=== PATIENT | female | born 1945 ===

== ENCOUNTER 2016-07-19 09:47 | Emergency (ER) | payer OTHER ==
[2016-07-19 09:55] VITALS: RESP 18
--- NOTE | 2016-07-19 10:47 | C.PDOC ---
History Of Present Illness 71 yr old female presents to the ER with complaints of nasal congestion, post nasal drip and dry non productive cough for the past 2 weeks. Patient states she has been taking the occasional Tylenol with no relief. Also reports of right lateral rib pain. Patient denies trauma, fall, fever, chest pain, SOB, nausea, vomiting, back pain, weakness or numbness. Time Seen by Provider: 07/19/16 10:16 Chief Complaint (Nursing): Cough, Cold, Congestion History Per: Patient History/Exam Limitations: no limitations Onset/Duration Of Symptoms: Days (2 weeks) Past Medical History Reviewed: Historical Data, Nursing Documentation, Vital Signs Vital Signs: Last Vital Signs Temp 98.2 F 07/19/16 11:03 Pulse 75 07/19/16 11:03 Resp 18 07/19/16 11:03 BP 124/75 07/19/16 11:03 Pulse Ox 99 07/19/16 11:03 - Medical History PMH: Hypercholesterolemia Family History: States: No Known Family Hx - Social History Hx Alcohol Use: No Hx Substance Use: No - Immunization History Hx Tetanus Toxoid Vaccination: No Hx Influenza Vaccination: No Hx Pneumococcal Vaccination: No Review Of Systems Except As Marked, All Systems Reviewed And Found Negative. Constitutional: Negative for: Fever ENT: Positive for: Nose Congestion, Other ((+) Post nasal drip) Cardiovascular: Negative for: Chest Pain Respiratory: Positive for: Cough (Dry). Negative for: Shortness of Breath Gastrointestinal: Negative for: Nausea, Vomiting Musculoskeletal: Positive for: Other ((+) Right lateral rib pain). Negative for : Back Pain Neurological: Negative for: Weakness, Numbness Physical Exam - Physical Exam Appears: Well, Non-toxic, No Acute Distress Skin: Warm, Dry Head: Atraumatic, Normacephalic Oral Mucosa: Moist Throat: Normal, No Erythema, No Exudate, No Drooling Neck: Normal, Normal ROM, Supple Chest: Symmetrical, No Tenderness Cardiovascular: Rhythm Regular, No Murmur Respiratory: Normal Breath Sounds, No Rales, No Rhonchi, No Stridor, No Wheezing Gastrointestinal/Abdominal: Normal Exam, Soft, No Tenderness, No Guarding, No Rebound Extremity: Normal ROM, No Swelling Neurological/Psych: Oriented x3, Normal Speech, Normal Motor ED Course And Treatment O2 Sat by Pulse Oximetry: 98 Medical Decision Making Medical Decision Making: PLAN: * Motrin PO * Pepcid PO NOTE: mild seasonal allergies, mild R lower lateral rib costochondritis NSAIDS, ice, allergy meds educated, Disposition Doctor Will See Patient In The: Office Counseled Patient/Family Regarding: Studies Performed, Diagnosis - Disposition Referrals: Clinic,Med Surg [Primary Care Provider] - Disposition: HOME/ ROUTINE Disposition Time: 10:46 Condition: GOOD Additional Instructions: Ibuprofeno 600 cada 6 horas o' Naproxyn 500 mg cada 12 horas Pepcid 20 mg en la noche para prevenir irritacion' del [place]om[place] debido al ibuprofeno bolsa de hielo encima de las costillas 1/2 hora por hora. NADA CALIENTE Blanca-D o' algo parecedo para sintomas de allergias de la temporada. Instructions: Costochondritis (ED), Allergic Rhinitis (ED) Print Language: ALBANIAN - Clinical Impression Clinical Impression: Seasonal allergic rhinitis, Rib pain on right side - Scribe Statement The provider has reviewed the documentation as recorded by the J Carlosibmandi Dwyer Provider Attestation: All medical record entries made by the Scribe were at my direction and personally dictated by me. I have reviewed the chart and agree that the record accurately reflects my personal performance of the history, physical exam, medical decision making, and the department course for this patient. I have also personally directed, reviewed, and agree with the discharge instructions and disposition.
[2016-07-19 11:03] VITALS: BP 124/75; PULSE 75; TEMP 98.2
[2016-07-19 11:50] VITALS: O2SAT 98
== END 2016-07-19 11:03 | disposition home or self-care (01) ==
LOC: C.ER 09:47 → SUPCPDRO 09:47 → C.ER 11:03
DX: J30.2 Other seasonal allergic rhinitis (principal); R07.81 Pleurodynia